=== PATIENT | female | born 1965 | race Caucasian/White ===

== ENCOUNTER 2019-05-14 08:00 | Outpatient (CLI) | payer OTHER ==
[2019-06-08 10:47] VITALS: BMI 27.6
== END 2019-05-14 23:59 | disposition home or self-care (01) ==
LOC: D.MAMMO 08:00
PROVIDERS: ATTEND Clinical Nurse Specialist Family Health
DX: Z12.31 Encounter for screening mammogram for malignant neoplasm of breast (principal)

== ENCOUNTER 2019-06-08 09:55 | Day surgery (SDC) | payer OTHER ==
[2019-06-06 09:52] LABS: BASOPHILS 0.3 % (0-2); HEMATOCRIT 37.7 % (36.0-48.0); HEMOGLOBIN 12.8 g/dL (12-16); IMMATURE GRANULOCYTES 0.3 % (0-5); LYMPHOCYTES 32.1 % (15-50); MCH 29.2 pg (26.0-34.0); MCV 86.1 fL (80.0-100.0); MEAN PLATELET VOLUME 11.6 fL (7.4-10.4); MONOCYTES 7.4 % (2-11); NEUTROPHILS 58.9 % (40-80); PLATELET COUNT 217 10x3/uL (130-400); RBC 4.38 10x6/uL (4.00-5.40); RDW 12.9 % (11.5-14.5); WBC 5.8 10x3/uL (4.8-10.8)
[~2019-06-08] VITALS: Ht 167.6 cm; Wt 77.6 kg
[2019-06-08 10:47] VITALS: BP 110/71; Ht 167.6 cm; Wt 77.6 kg
== END 2019-06-08 14:05 | disposition home or self-care (01) ==
LOC: D.OPS 09:55 → D.PAN 12:00 → D.OPS 14:05
PROVIDERS: ATTEND Obstetrics & Gynecology
DX: N89.3 Dysplasia of vagina, unspecified (principal)

== ENCOUNTER 2020-11-25 15:00 | Outpatient (CLI) | payer BC ==
[2019-06-08 10:47] VITALS: BMI 27.6
== END 2020-11-25 23:59 | disposition home or self-care (01) ==
LOC: D.MAMMO 15:00
PROVIDERS: ATTEND Family Medicine
DX: Z12.31 Encounter for screening mammogram for malignant neoplasm of breast (principal)

== ENCOUNTER 2020-12-16 18:40 | Outpatient (CLI) | payer BC ==
[2019-06-08 10:47] VITALS: BMI 27.6
== END 2020-12-16 23:59 | disposition home or self-care (01) ==
LOC: D.MAMMO 18:40
PROVIDERS: ATTEND Family Medicine
DX: R92.8 Other abnormal and inconclusive findings on diagnostic imaging of breast (principal)